=== PATIENT | male | born 1955 | race Caucasian/White ===

== ENCOUNTER 2017-06-19 09:32 | Emergency (ER) | payer MEDICARE ==
[~2017-06-19] VITALS: Ht 185.4 cm; Wt 85.0 kg
[~2017-06-19 09:32] MED LIST: ASPI-621 PO; LORA-446 PO; NICO-487 TD; OXCA300T3 PO; QUET25TA5 PO; QUET50TA PO; SERT50TA PO; THIA100T10 PO; TRAZ100T15 PO; TRAZ150T62 PO
[2017-06-19 09:41] VITALS: BP 120/74
[2017-06-19 10:38] LABS: HEMATOCRIT 44.2 % (39.2-51.8); HEMOGLOBIN 15.2 g/dL (13.7-18.0)
[2017-06-19 10:45] LABS: BLOOD UREA NITROGEN 17 mg/dL (7-18)
== END 2017-06-19 11:23 | disposition home or self-care (01) ==
LOC: ED 10:02
DX: L73.9 Follicular disorder, unspecified (principal); M79.672 Pain in left foot; M79.671 Pain in right foot; I25.10 Atherosclerotic heart disease of native coronary artery without angina pectoris; I25.2 Old myocardial infarction
CPT/HCPCS: 36415; 80048; 82040; 84550; 85025; 99285

== ENCOUNTER 2017-06-22 05:34 | Inpatient (IN) | payer MEDICARE ==
[~2017-06-22] VITALS: Ht 185.4 cm; Wt 91.2 kg
[2017-06-22] MEDS ORDERED: SODIUM CHLORIDE 0.9% 1,000 ML IV ONE (06:49)
[2017-06-22] MEDS ORDERED: VANCOMYCIN 1,800 MG in SODIUM CHLORIDE 0.9% 250 ML IV ONE (07:00)
[2017-06-22] MEDS ORDERED: SODIUM CHLORIDE FLUSH 10ML SYR IVF ONE (07:00)
[2017-06-22] MEDS ORDERED: VANCOMYCIN PER PHARMACY IV ONE (07:00)
[2017-06-22] MEDS ORDERED: ONDANSETRON 2MG/ML, 2ML IVPush ONE (07:00)
[2017-06-22] MEDS ORDERED: SODIUM CHLORIDE 0.9% 1,000ML IVBOLUS ONE (07:00)
[2017-06-22] MEDS ORDERED: ONDANSETRON 2MG/ML, 2ML ONE (07:27)
[2017-06-22] MEDS ORDERED: HYDROmorphone 2 MG/ML, 1ML ONE (07:27)
[2017-06-22 07:33] LABS: HEMATOCRIT 42.4 % (39.2-51.8); HEMOGLOBIN 14.7 g/dL (13.7-18.0); WHITE BLOOD COUNT 13.4 x10^3/uL (3.4-10)
[2017-06-22 07:45] LABS: ASPARTATE AMINO TRANSFERASE 10 U/L (15-37); BLOOD UREA NITROGEN 9 mg/dL (7-18)
[2017-06-22] MEDS: HYDROmorphone 1 MG/ML, 1ML IVPush PRN ×2 (07:52→11:38)
[2017-06-22 08:06] LABS: DIFF TOTAL CELLS COUNTED 100 CELL DIFF
[2017-06-22 08:08] LABS: VERIFY COUNTS? YES
[2017-06-22] MEDS ORDERED: ONDANSETRON 2MG/ML, 2ML IVPush PRN (08:30)
[2017-06-22] MEDS ORDERED: ONDANSETRON ODT 4 MG PO PRN (08:30)
[2017-06-22] MEDS ORDERED: ACETAMINOPHEN 325 MG TABLET PO PRN (08:30)
[2017-06-22] MEDS ORDERED: LABETALOL 5MG/ML, 20ML IVPush PRN (08:30)
[2017-06-22] MEDS ORDERED: ENALAPRILAT 1.25 MG/ML, 2ML IVPush PRN (08:30)
[2017-06-22] MEDS ORDERED: DOCUSATE 100 MG CAPSULE PO PRN (08:30)
[2017-06-22] MEDS ORDERED: VANCOMYCIN PER PHARMACY MC PRN (08:30)
[2017-06-22] MEDS ORDERED: BISACODYL 10 MG SUPP PR PRN (08:30)
[2017-06-22] MEDS: THIAMINE 100MG TABLET PO SCH (09:00)
[2017-06-22] MEDS ORDERED: PHARMACOKINETIC MONITORING MC PRN (10:30)
[2017-06-22] MEDS ORDERED: PHARMACOKINETIC CONSULTATION MC ONE (10:30)
[2017-06-22] MEDS ORDERED: SENNA/DOCUSATE TABLET ONE (11:27)
[2017-06-22] MEDS ORDERED: NICOTINE 21 MG/24 HR PATCH.TD24 ONE (11:27)
[2017-06-22] MEDS ORDERED: ENOXAPARIN 40 MG/0.4 ML ONE (11:28)
[2017-06-22] MEDS: NICOTINE 21 MG/24 HR PATCH.TD24 TD SCH (11:37)
[2017-06-22] MEDS: ENOXAPARIN 40 MG/0.4 ML SQ SCH (11:37)
[2017-06-22] MEDS: SENNA/DOCUSATE TABLET PO SCH (11:37)
[2017-06-22] MEDS: AMPICILLIN/SULBACTAM 3 GM in SODIUM CHLORIDE 0.9% 100 ML IV SCH ×3 (11:40→22:07)
[2017-06-22] MEDS: SERTRALINE 50MG TABLET PO SCH (12:32)
[2017-06-22] MEDS: ASPIRIN 81 MG TABLET EC PO SCH (12:32)
[2017-06-22] MEDS ORDERED: ALBUTEROL/IPRATROPIUM 2.5MG/0.5MG, 3 ML ONE ×2 (12:57→16:34)
[2017-06-22 13:58] VITALS: BP 105/71
[2017-06-22] MEDS: HYDROcodone/APAP 5/325 TABLET PO PRN ×2 (14:24→18:31)
[2017-06-22] MEDS: SODIUM CHLORIDE 0.9% 1,000 ML IV SCH (14:24)
[2017-06-22] MEDS: ALBUTEROL/IPRATROPIUM 2.5MG/0.5MG, 3 ML NPPB SCH ×2 (17:15→19:49)
[2017-06-22 18:38] VITALS: BP 101/68
[2017-06-22 19:40] VITALS: BP 106/72
[2017-06-22] MEDS ORDERED: ALBUTEROL/IPRATROPIUM 2.5MG/0.5MG, 3 ML NPPB SCH (20:00)
[2017-06-22] MEDS: VANCOMYCIN 1,800 MG in SODIUM CHLORIDE 0.9% 250 ML IV SCH (20:06)
[2017-06-22 20:08] VITALS: BP 107/70
[2017-06-22] MEDS: TRAZODONE 100MG TABLET PO SCH (22:08)
[2017-06-23 01:06] VITALS: BP 111/76
[2017-06-23] MEDS: AMPICILLIN/SULBACTAM 3 GM in SODIUM CHLORIDE 0.9% 100 ML IV SCH ×4 (03:12→23:17)
[2017-06-23] MEDS: SODIUM CHLORIDE 0.9% 1,000 ML IV SCH ×2 (03:13→23:17)
[2017-06-23 05:50] LABS: BLOOD UREA NITROGEN 7 mg/dL (7-18)
[2017-06-23 05:52] LABS: HEMOGLOBIN 11.8 g/dL (13.7-18.0); WHITE BLOOD COUNT 7.6 x10^3/uL (3.4-10)
[2017-06-23] MEDS: HYDROcodone/APAP 5/325 TABLET PO PRN ×3 (06:08→20:06)
[2017-06-23 07:09] VITALS: BP 99/63
[2017-06-23] MEDS: VANCOMYCIN 1,800 MG in SODIUM CHLORIDE 0.9% 250 ML IV SCH ×2 (07:44→20:06)
[2017-06-23] MEDS: ALBUTEROL/IPRATROPIUM 2.5MG/0.5MG, 3 ML NPPB SCH ×4 (08:07→20:00)
[2017-06-23 08:24] LABS: DIFF TOTAL CELLS COUNTED 100 CELL DIFF
[2017-06-23 08:25] LABS: VERIFY COUNTS? YES
[2017-06-23 08:27] LABS: ANISOCYTOSIS 1+; POLYCHROMASIA 1+
[2017-06-23] MEDS: ENOXAPARIN 40 MG/0.4 ML SQ SCH (10:34)
[2017-06-23] MEDS: NICOTINE 21 MG/24 HR PATCH.TD24 TD SCH (10:35)
[2017-06-23] MEDS: ASPIRIN 81 MG TABLET EC PO SCH (10:36)
[2017-06-23] MEDS: SENNA/DOCUSATE TABLET PO SCH (10:36)
[2017-06-23] MEDS: SERTRALINE 50MG TABLET PO SCH (10:36)
[2017-06-23] MEDS: THIAMINE 100MG TABLET PO SCH (10:36)
[2017-06-23 13:25] VITALS: BP 91/53
[2017-06-23] MEDS: POTASSIUM CHLORIDE 20 MEQ TAB.ER.PRT PO SCH (18:23)
[2017-06-23 19:14] VITALS: BP 104/56
[2017-06-23] MEDS: TRAZODONE 100MG TABLET PO SCH (20:06)
[2017-06-24 01:08] VITALS: BP 96/54
[2017-06-24] MEDS: AMPICILLIN/SULBACTAM 3 GM in SODIUM CHLORIDE 0.9% 100 ML IV SCH ×3 (04:51→19:47)
[2017-06-24 06:33] VITALS: BP 110/70
[2017-06-24] MEDS: ALBUTEROL/IPRATROPIUM 2.5MG/0.5MG, 3 ML NPPB SCH ×4 (07:00→18:42)
[2017-06-24] MEDS: VANCOMYCIN 1,800 MG in SODIUM CHLORIDE 0.9% 250 ML IV SCH ×2 (08:54→20:27)
[2017-06-24] MEDS: SERTRALINE 50MG TABLET PO SCH (08:55)
[2017-06-24] MEDS: THIAMINE 100MG TABLET PO SCH (08:55)
[2017-06-24] MEDS: POTASSIUM CHLORIDE 20 MEQ TAB.ER.PRT PO SCH (08:55)
[2017-06-24] MEDS: ASPIRIN 81 MG TABLET EC PO SCH (08:55)
[2017-06-24] MEDS: SENNA/DOCUSATE TABLET PO SCH (08:55)
[2017-06-24] MEDS: NICOTINE 21 MG/24 HR PATCH.TD24 TD SCH (08:58)
[2017-06-24] MEDS: ENOXAPARIN 40 MG/0.4 ML SQ SCH (08:58)
[2017-06-24] MEDS: HYDROcodone/APAP 5/325 TABLET PO PRN ×2 (13:36→13:37)
[2017-06-24 14:25] VITALS: BP 108/68
[2017-06-24] MEDS: SODIUM CHLORIDE 0.9% 1,000 ML IV SCH (16:43)
[2017-06-24 19:07] VITALS: BP 109/62
[2017-06-24] MEDS: TRAZODONE 100MG TABLET PO SCH (21:00)
[2017-06-25 01:12] VITALS: BP 108/59
[2017-06-25] MEDS: AMPICILLIN/SULBACTAM 3 GM in SODIUM CHLORIDE 0.9% 100 ML IV SCH ×4 (02:07→19:37)
[2017-06-25] MEDS: SODIUM CHLORIDE 0.9% 1,000 ML IV SCH ×2 (02:07→17:46)
[2017-06-25 02:59] VITALS: BP 160/65
[2017-06-25] MEDS: ALBUTEROL/IPRATROPIUM 2.5MG/0.5MG, 3 ML NPPB SCH ×4 (07:18→20:00)
[2017-06-25 07:45] VITALS: BP 112/69
[2017-06-25] MEDS: THIAMINE 100MG TABLET PO SCH (08:31)
[2017-06-25] MEDS: SERTRALINE 50MG TABLET PO SCH (08:31)
[2017-06-25] MEDS: HYDROcodone/APAP 5/325 TABLET PO PRN ×2 (08:31→16:12)
[2017-06-25] MEDS: SENNA/DOCUSATE TABLET PO SCH (08:31)
[2017-06-25] MEDS: NICOTINE 21 MG/24 HR PATCH.TD24 TD SCH (08:32)
[2017-06-25] MEDS: ENOXAPARIN 40 MG/0.4 ML SQ SCH (08:34)
[2017-06-25] MEDS: ASPIRIN 81 MG TABLET EC PO SCH (08:36)
[2017-06-25] MEDS: VANCOMYCIN 1,800 MG in SODIUM CHLORIDE 0.9% 250 ML IV SCH ×2 (10:40→20:37)
[2017-06-25 13:34] VITALS: BP 118/81
[2017-06-25] MEDS: TRAZODONE 100MG TABLET PO SCH (19:44)
[2017-06-25 20:00] VITALS: BP 125/68
[2017-06-26 00:41] VITALS: BP 132/70
[2017-06-26] MEDS: AMPICILLIN/SULBACTAM 3 GM in SODIUM CHLORIDE 0.9% 100 ML IV SCH ×2 (01:33→10:42)
[2017-06-26 06:38] VITALS: BP 133/80
[2017-06-26] MEDS: ALBUTEROL/IPRATROPIUM 2.5MG/0.5MG, 3 ML NPPB SCH ×2 (07:11→11:00)
[2017-06-26] MEDS: VANCOMYCIN 1,800 MG in SODIUM CHLORIDE 0.9% 250 ML IV SCH (08:46)
[2017-06-26] MEDS: SODIUM CHLORIDE 0.9% 1,000 ML IV SCH (08:46)
[2017-06-26] MEDS: ENOXAPARIN 40 MG/0.4 ML SQ SCH (08:46)
[2017-06-26] MEDS: SENNA/DOCUSATE TABLET PO SCH (08:47)
[2017-06-26] MEDS: THIAMINE 100MG TABLET PO SCH (08:47)
[2017-06-26] MEDS: SERTRALINE 50MG TABLET PO SCH (08:47)
[2017-06-26] MEDS ORDERED: SULF1TAB24 PO (10:42)
[2017-06-26] MEDS: NICOTINE 21 MG/24 HR PATCH.TD24 TD SCH (10:42)
[2017-06-26] MEDS: ASPIRIN 81 MG TABLET EC PO SCH (12:00)
[2017-06-26] MEDS ORDERED: PNEUMOCOCCAL 23 VACCINE IM-VACC ONE (12:00)
[2017-06-26] MEDS ORDERED: FLU VACC QS2017-18 (36MOS+) UP/PF 0.5 ML IM-VACC ONE (12:00)
[2017-06-26 14:58] VITALS: BP 146/84
[2017-06-26] MEDS ORDERED: ALBUTEROL/IPRATROPIUM 2.5MG/0.5MG, 3 ML NPPB PRN (16:00)
[2017-06-26] MEDS ORDERED: ACETAMINOPHEN 325 MG TABLET PO PRN (17:30)
[2017-06-26 18:28] VITALS: BP 136/78
[2017-06-26] MEDS: SULFAMETH./TRIMETHOPRIM DS 800MG/160MG TABLET PO SCH (19:51)
[2017-06-26] MEDS: TRAZODONE 100MG TABLET PO SCH (19:51)
[2017-06-27 00:33] VITALS: BP 151/82
[2017-06-27 06:38] VITALS: BP 144/82
[2017-06-27] MEDS: SENNA/DOCUSATE TABLET PO SCH (09:13)
[2017-06-27] MEDS: SULFAMETH./TRIMETHOPRIM DS 800MG/160MG TABLET PO SCH ×2 (09:18→20:30)
[2017-06-27] MEDS: ASPIRIN 81 MG TABLET EC PO SCH (09:18)
[2017-06-27] MEDS: THIAMINE 100MG TABLET PO SCH (09:18)
[2017-06-27] MEDS: ENOXAPARIN 40 MG/0.4 ML SQ SCH (09:18)
[2017-06-27] MEDS: SERTRALINE 50MG TABLET PO SCH (09:18)
[2017-06-27] MEDS: NICOTINE 21 MG/24 HR PATCH.TD24 TD SCH (09:18)
[2017-06-27 12:12] VITALS: BP 116/72
[2017-06-27 19:31] VITALS: BP 118/67
[2017-06-27] MEDS: TRAZODONE 100MG TABLET PO SCH (20:30)
[2017-06-28 01:29] VITALS: BP 135/66
[2017-06-28 06:48] VITALS: BP 121/77
[2017-06-28] MEDS: SENNA/DOCUSATE TABLET PO SCH (09:00)
[2017-06-28] MEDS: THIAMINE 100MG TABLET PO SCH (09:32)
[2017-06-28] MEDS: ENOXAPARIN 40 MG/0.4 ML SQ SCH (09:32)
[2017-06-28] MEDS: NICOTINE 21 MG/24 HR PATCH.TD24 TD SCH (09:32)
[2017-06-28] MEDS: SULFAMETH./TRIMETHOPRIM DS 800MG/160MG TABLET PO SCH (09:32)
[2017-06-28] MEDS: ASPIRIN 81 MG TABLET EC PO SCH (09:32)
[2017-06-28] MEDS: SERTRALINE 50MG TABLET PO SCH (09:32)
[2017-06-28 12:32] VITALS: BP 139/73
== END 2017-06-28 12:45 | disposition home or self-care (01) | DRG 872 ==
LOC: ED 07:00 → EDIP 07:13 → ED 07:36 → 3NE 13:34
PROVIDERS: ADMIT Internal Medicine; ATTEND Family Medicine
DX: A41.9 Sepsis, unspecified organism (principal); E44.0 Moderate protein-calorie malnutrition; L03.116 Cellulitis of left lower limb; E87.6 Hypokalemia; J44.9 Chronic obstructive pulmonary disease, unspecified; F31.9 Bipolar disorder, unspecified
CPT/HCPCS: 36415; 80048; 80053; 80202; 82565; 83605; 83735; 85025; 85651; 87040; 90686; 90732; 94640; 96365; 96366; 96375; 96376; J0295; J1170; J1650; J2405; J3370; J7620; J7030; J7050

== ENCOUNTER 2018-07-02 08:28 | Observation (INO) | payer MEDICARE ==
[~2018-07-02] VITALS: Ht 185.4 cm; Wt 84.3 kg
[~2018-07-02 08:28] MED LIST changes: -ASPI-621 PO; +ASPI81TA45 PO; +SULF1TAB24 PO; +TRAZ-137 PO; -TRAZ100T15 PO
[2018-07-02] MEDS ORDERED: DIPHENHYDRAMINE 50 MG/ML, 1ML ONE (08:44)
[2018-07-02] MEDS ORDERED: FAMOTIDINE 20 MG TABLET ONE (08:44)
[2018-07-02] MEDS ORDERED: FAMOTIDINE 20 MG TABLET PO ONE (09:00)
[2018-07-02] MEDS ORDERED: DIPHENHYDRAMINE 50 MG/ML, 1ML IVPush ONE (09:00)
[2018-07-02] MEDS ORDERED: hydrOXYzine 25 MG/ML IM ONE (10:30)
[2018-07-02 11:17] LABS: BASOPHILS # (AUTO) 0.01 x10^3/uL (0-0.1); BASOPHILS % (AUTO) 0 % (0-1); EOSINOPHILS # (AUTO) 0.35 x10^3/uL (0-0.4); EOSINOPHILS % (AUTO) 4 % (1-7); LYMPHOCYTES # (AUTO) 1.06 x10^3/uL (1-3.4); LYMPHOCYTES % (AUTO) 12 % (22-44); MD NO; MEAN CORPUSCULAR HEMOGLOBIN 33.6 pg (27.5-34.5); MEAN CORPUSCULAR HGB CONC 34.5 g/dL (33.2-36.2); MEAN CORPUSCULAR VOLUME 97.4 fL (81-97); MEAN PLATELET VOLUME 7.8 fL (7.4-10.4); MONOCYTES # (AUTO) 0.69 x10^3/uL (0.2-0.8); MONOCYTES % (AUTO) 8 % (2-9); NEUTROPHILS % (AUTO) 77 % (42-75); PLATELET COUNT 247 x10^3/uL (130-400); RED BLOOD COUNT 4.79 x10^6/uL (4.38-5.82)
[2018-07-02 11:27] LABS: ANION GAP 6 mmol/L (5-15); CALCIUM 8.7 mg/dL (8.5-10.1); CHLORIDE 105 mmol/L (98-107); CREATININE 0.73 mg/dL (0.7-1.3)
[2018-07-02] MEDS ORDERED: DOCUSATE 100 MG CAPSULE PO PRN (11:30)
[2018-07-02] MEDS ORDERED: LORazepam 1MG TABLET PO PRN (11:30)
[2018-07-02] MEDS ORDERED: ACETAMINOPHEN 325 MG TABLET PO PRN (11:30)
[2018-07-02] MEDS ORDERED: ONDANSETRON ODT 4 MG PO PRN (11:30)
[2018-07-02] MEDS ORDERED: DIPHENHYDRAMINE 50 MG/ML, 1ML IVPush PRN (11:30)
[2018-07-02] MEDS ORDERED: hydrOXYzine 50 MG/ML IM ONE (11:30)
[2018-07-02 11:58] VITALS: BP 120/81
[2018-07-02] MEDS: HEPARIN 5,000 UNITS/ML, 1ML SQ SCH ×2 (14:29→22:24)
[2018-07-02] MEDS: methylPREDNISolone SOD SUCC 125 MG/2 ML IVPush SCH ×2 (14:29→22:21)
[2018-07-02] MEDS: SODIUM CHLORIDE 0.9% 1,000 ML IV SCH (14:30)
[2018-07-02] MEDS: THIAMINE 100MG TABLET PO SCH (14:30)
[2018-07-02] MEDS: NICOTINE 21 MG/24 HR PATCH.TD24 TD SCH (14:30)
[2018-07-02] MEDS: FOLIC ACID 1 MG TABLET PO SCH (14:30)
[2018-07-02 18:27] VITALS: BP 125/80
[2018-07-02] MEDS ORDERED: FAMOTIDINE 20 MG/2 ML IVPush SCH (21:00)
[2018-07-03 01:28] VITALS: BP 123/75
[2018-07-03] MEDS: SODIUM CHLORIDE 0.9% 1,000 ML IV SCH (03:17)
[2018-07-03] MEDS ORDERED: FAMOTIDINE 20 MG TABLET PO SCH (06:06)
[2018-07-03] MEDS: methylPREDNISolone SOD SUCC 125 MG/2 ML IVPush SCH (06:08)
[2018-07-03] MEDS: HEPARIN 5,000 UNITS/ML, 1ML SQ SCH (06:11)
[2018-07-03] MEDS: NICOTINE 21 MG/24 HR PATCH.TD24 TD SCH (06:40)
[2018-07-03] MEDS: THIAMINE 100MG TABLET PO SCH (07:47)
[2018-07-03] MEDS: FOLIC ACID 1 MG TABLET PO SCH (07:47)
== END 2018-07-03 10:15 | disposition left against medical advice (07) ==
LOC: ED 10:19 → INTOOBSV 10:20 → EDIP 10:20 → ED 10:34 → 3NW 11:50
PROVIDERS: ADMIT Internal Medicine; ATTEND Internal Medicine
DX: L23.4 Allergic contact dermatitis due to dyes (principal); I25.10 Atherosclerotic heart disease of native coronary artery without angina pectoris; F10.10 Alcohol abuse, uncomplicated; F17.210 Nicotine dependence, cigarettes, uncomplicated; F31.9 Bipolar disorder, unspecified; I25.2 Old myocardial infarction
CPT/HCPCS: 36415; 80048; 85025; 96372; 96374; 96375; 96376; 99284; G0378; J1200; J1644; J2930; J3490; J7030; J7512

== ENCOUNTER 2018-07-21 10:54 | Emergency (ER) | payer MEDICARE ==
[~2018-07-21] VITALS: Ht 182.9 cm; Wt 85.0 kg
[2018-07-21 11:06] VITALS: BP 113/70
[2018-07-21] MEDS ORDERED: LIDOCAINE-MPF 1%, 5ML ONE (11:54)
[2018-07-21] MEDS ORDERED: LIDOCAINE-MPF 1%, 5ML INFIL ONE (12:00)
== END 2018-07-21 12:31 | disposition home or self-care (01) ==
LOC: ED 12:12
DX: L02.11 Cutaneous abscess of neck (principal); I25.10 Atherosclerotic heart disease of native coronary artery without angina pectoris; I25.2 Old myocardial infarction; F31.9 Bipolar disorder, unspecified; F17.200 Nicotine dependence, unspecified, uncomplicated; Z88.5 Allergy status to narcotic agent
CPT/HCPCS: 10060

== ENCOUNTER 2018-09-21 19:36 | Emergency (ER) | payer MEDICARE ==
[~2018-09-21] VITALS: Ht 185.4 cm; Wt 88.0 kg
[2018-09-21] MEDS ORDERED: ASPIRIN 81 MG TABLET CHEW PO ONE (20:00)
[2018-09-21 20:02] VITALS: BP 149/88
[2018-09-21] MEDS ORDERED: DIPH,PERTUSS(ACELL),TET VAC/PF 0.5 ML IM-VACC ONE ×2 (20:57→21:00)
--- NOTE | 2018-09-21 21:06 | NUR ---
Discharge instructions discussed with patient including when to return to emergency department, patient verbalizes understanding. Prescriptions provided with instruction for use. Patient ambulates with steady gait to discharge desk in no acute distress.
== END 2018-09-21 21:09 | disposition home or self-care (01) ==
LOC: ED 20:34
DX: L02.414 Cutaneous abscess of left upper limb (principal); F17.210 Nicotine dependence, cigarettes, uncomplicated; Z72.9 Problem related to lifestyle, unspecified; Z75.9 Unspecified problem related to medical facilities and other health care
CPT/HCPCS: 90471; 90715; 99283

== ENCOUNTER 2019-07-21 12:16 | Emergency (ER) | payer MEDICARE ==
[~2019-07-21] VITALS: Ht 182.9 cm; Wt 90.3 kg
[~2019-07-21 12:16] MED LIST changes: -TRAZ-137 PO; +TRAZ-175 PO
[2019-07-21 13:38] VITALS: BP 142/97
--- NOTE | 2019-07-21 14:00 | NUR ---
PT AMBULATORY TO ROOM FROM [facility]. ROOM SECURED, PT BELONGINGS TO TWO BAGS AND PLACED IN LOCKER. URINAL PROVIDED. PT UPDATED ON POC. ED SUP NOTIFIED OF NEED FOR SITTER. PT SEVERAL TIMES HAS DENIED SI, HOWEVER REPORTS OF DEPRESSION, "NOT WANTING TO LIVE LIKE THIS", AND ASKS TO BE SENT TO [facility]. PT ALSO STATES "I OFTEN WISH I WAS AND IF I HAD A PLAN IT WOULD BE BY SOIL TECHNICIAN". PT STATES HE HAS ACCESS TO [employer] "WHEN I NEED THEM". PT ALSO WITH C/O COUGH.
[2019-07-21 14:14] LABS: BASOPHILS # (AUTO) 0.07 x10^3/uL (0-0.1); BASOPHILS % (AUTO) 1 % (0-1); EOSINOPHILS # (AUTO) 0.22 x10^3/uL (0-0.4); EOSINOPHILS % (AUTO) 3 % (1-7); LYMPHOCYTES # (AUTO) 2.08 x10^3/uL (1-3.4); LYMPHOCYTES % (AUTO) 29 % (22-44); MD NO; MEAN CORPUSCULAR HEMOGLOBIN 32.9 pg (27.5-34.5); MEAN CORPUSCULAR VOLUME 96.6 fL (81-97); MEAN PLATELET VOLUME 7.6 fL (7.4-10.4); MONOCYTES # (AUTO) 0.61 x10^3/uL (0.2-0.8); MONOCYTES % (AUTO) 8 % (2-9); NEUTROPHILS # (AUTO) 4.25 x10^3/uL (1.8-6.8); NEUTROPHILS % (AUTO) 59 % (42-75); PLATELET COUNT 292 x10^3/uL (130-400); RED BLOOD COUNT 4.45 x10^6/uL (4.38-5.82); RED CELL DISTRIBUTION WIDTH 13.1 % (9.4-14.8)
[2019-07-21 14:23] LABS: ALANINE AMINOTRANSFERASE 22 U/L (12-78); ALBUMIN 3.4 g/dL (3.4-5.0); ANION GAP 5 mmol/L (5-15); CALCIUM 8.3 mg/dL (8.5-10.1); CHLORIDE 111 mmol/L (98-107); CREATININE 0.84 mg/dL (0.7-1.3)
[2019-07-21 14:30] LABS: ALKALINE PHOSPHATASE 102 U/L (45-117); BILIRUBIN,TOTAL 0.3 mg/dL (0.2-1.0); TOTAL PROTEIN 6.6 g/dL (6.4-8.2)
[2019-07-21] MEDS ORDERED: ALBUTEROL/IPRATROPIUM 2.5MG/0.5MG, 3 ML NPPB ONE ×2 (15:00→16:00)
--- NOTE | 2019-07-21 15:03 | NUR ---
AWAITING PSYCH ULTRA SOUND TECHNICIAN TO SEE PT.
--- NOTE | 2019-07-21 15:24 | NUR ---
THROUGHPUT: PSYCH TRACTOR EXPERT (KARL) TO SEE ELIZABETH
--- NOTE | 2019-07-21 16:30 | NUR ---
TAXI VOUCHER PROVIDED FOR TRANSPORT TO [facility].
== END 2019-07-21 16:35 | disposition home or self-care (01) ==
LOC: ED 16:05
DX: J44.1 Chronic obstructive pulmonary disease with (acute) exacerbation (principal); F33.1 Major depressive disorder, recurrent, moderate; I10 Essential (primary) hypertension; I25.10 Atherosclerotic heart disease of native coronary artery without angina pectoris; I25.2 Old myocardial infarction
CPT/HCPCS: 36415; 71046; 80053; 85025; 94640; 99284; J7512; J7620

== ENCOUNTER 2019-09-28 20:38 | Emergency (ER) | payer MEDICARE ==
[~2019-09-28] VITALS: Ht 182.9 cm; Wt 88.0 kg
--- NOTE | 2019-09-28 21:35 | NUR ---
STUDIO COORDINATOR: PT WALKED BACK FROM LOBBY TO ROOM AT THIS TIME.
--- NOTE | 2019-09-28 21:40 | NUR ---
PT REPORTS OF HIS 6 MONTHS AGO, REPORTS "FEELING DOWN" TODAY. DENIES SI/HI OR ANY MEDICAL COMPLAINTS AT THIS TIME. WANTS TAXI VOUCHER TO [facility] STATES "ITS TOO FAR TO WALK". PT CONENCTED TO MONITORING, CALL LIGHT WITHIN REACH.
[2019-09-28 22:04] VITALS: BP 134/78
--- NOTE | 2019-09-28 22:42 | NUR ---
Patient/Caregiver given discharge instructions and they have confirmed that they understand the instructions. Patient ambulatory with steady gait.
== END 2019-09-28 22:46 | disposition home or self-care (01) ==
LOC: ED 21:50
DX: F33.9 Major depressive disorder, recurrent, unspecified (principal); Z72.9 Problem related to lifestyle, unspecified; I25.2 Old myocardial infarction; I10 Essential (primary) hypertension; J44.9 Chronic obstructive pulmonary disease, unspecified
CPT/HCPCS: 99281

== ENCOUNTER 2019-10-29 09:47 | Emergency (ER) | payer MEDICARE ==
[~2019-10-29] VITALS: Ht 182.9 cm; Wt 86.4 kg
[2019-10-29] MEDS ORDERED: QUET100T4 PO (10:02)
--- NOTE | 2019-10-29 10:02 | NUR ---
PT LAYING IN BED, RESPIRATIONS EVEN AND UNLABORED, NO SIGNS OF DISTRESS, ERP TO BEDSIDE. WILL CONTINUE TO MONITOR.
--- NOTE | 2019-10-29 10:12 | NUR ---
PT TO IMAGING.
[2019-10-29 10:56] LABS: BASOPHILS # (AUTO) 0.03 x10^3/uL (0-0.1); BASOPHILS % (AUTO) 1 % (0-1); EOSINOPHILS # (AUTO) 0.23 x10^3/uL (0-0.4); EOSINOPHILS % (AUTO) 4 % (1-7); LYMPHOCYTES # (AUTO) 1.57 x10^3/uL (1-3.4); LYMPHOCYTES % (AUTO) 26 % (22-44); MD NO; MEAN CORPUSCULAR HEMOGLOBIN 32.9 pg (27.5-34.5); MEAN CORPUSCULAR HGB CONC 33.6 g/dL (33.2-36.2); MEAN CORPUSCULAR VOLUME 97.8 fL (81-97); MEAN PLATELET VOLUME 7.7 fL (7.4-10.4); MONOCYTES # (AUTO) 0.47 x10^3/uL (0.2-0.8); MONOCYTES % (AUTO) 8 % (2-9); NEUTROPHILS # (AUTO) 3.65 x10^3/uL (1.8-6.8); NEUTROPHILS % (AUTO) 61 % (42-75); PLATELET COUNT 272 x10^3/uL (130-400); RED BLOOD COUNT 4.78 x10^6/uL (4.38-5.82); RED CELL DISTRIBUTION WIDTH 13.6 % (9.4-14.8)
[2019-10-29 11:08] LABS: ALANINE AMINOTRANSFERASE 23 U/L (12-78); ALBUMIN 3.5 g/dL (3.4-5.0); ANION GAP 5 mmol/L (5-15); CALCIUM 9.1 mg/dL (8.5-10.1); CHLORIDE 108 mmol/L (98-107); CREATININE 0.74 mg/dL (0.7-1.3)
--- NOTE | 2019-10-29 11:09 | NUR ---
US AT BEDSIDE. PT SITTING IN BED, WATCHING TV, NO SIGNS OF DISTRESS.
[2019-10-29 11:12] LABS: ALKALINE PHOSPHATASE 93 U/L (45-117); BILIRUBIN,TOTAL 0.5 mg/dL (0.2-1.0); TOTAL PROTEIN 7.2 g/dL (6.4-8.2)
[2019-10-29 12:10] VITALS: BP 119/60
== END 2019-10-29 12:37 | disposition home or self-care (01) ==
LOC: ED 10:14
DX: S90.31XA Contusion of right foot, initial encounter (principal); S80.812A Abrasion, left lower leg, initial encounter; L03.116 Cellulitis of left lower limb; R60.0 Localized edema; J44.9 Chronic obstructive pulmonary disease, unspecified; I25.10 Atherosclerotic heart disease of native coronary artery without angina pectoris; I25.2 Old myocardial infarction; I10 Essential (primary) hypertension; W01.0XXA Fall on same level from slipping, tripping and stumbling without subsequent striking against object, initial encounter; Y93.89 Activity, other specified; Y92.89 Other specified places as the place of occurrence of the external cause; Y99.8 Other external cause status
CPT/HCPCS: 36415; 71045; 80053; 83880; 85025; 93970; 99285

== ENCOUNTER 2019-10-30 21:30 | Emergency (ER) | payer MEDICARE ==
[~2019-10-30] VITALS: Ht 185.4 cm; Wt 87.0 kg
[~2019-10-30 21:30] MED LIST changes: +QUET100T4 PO
[2019-10-30] MEDS ORDERED: ACETAMINOPHEN 500 MG TABLET ONE (21:41)
[2019-10-30 21:48] VITALS: BP 140/82
[2019-10-30 21:53] LABS: BASOPHILS # (AUTO) 0.03 x10^3/uL (0-0.1); BASOPHILS % (AUTO) 1 % (0-1); EOSINOPHILS # (AUTO) 0.23 x10^3/uL (0-0.4); EOSINOPHILS % (AUTO) 4 % (1-7); LYMPHOCYTES # (AUTO) 1.91 x10^3/uL (1-3.4); LYMPHOCYTES % (AUTO) 31 % (22-44); MD NO; MEAN CORPUSCULAR HEMOGLOBIN 32.4 pg (27.5-34.5); MEAN CORPUSCULAR HGB CONC 33.5 g/dL (33.2-36.2); MEAN CORPUSCULAR VOLUME 96.7 fL (81-97); MEAN PLATELET VOLUME 7.7 fL (7.4-10.4); MONOCYTES # (AUTO) 0.58 x10^3/uL (0.2-0.8); MONOCYTES % (AUTO) 9 % (2-9); NEUTROPHILS # (AUTO) 3.41 x10^3/uL (1.8-6.8); NEUTROPHILS % (AUTO) 55 % (42-75); PLATELET COUNT 264 x10^3/uL (130-400); RED BLOOD COUNT 4.22 x10^6/uL (4.38-5.82); RED CELL DISTRIBUTION WIDTH 13.9 % (9.4-14.8)
[2019-10-30] MEDS ORDERED: SULFAMETH./TRIMETHOPRIM DS 800MG/160MG TABLET PO ONE (22:00)
[2019-10-30] MEDS ORDERED: CEPHALEXIN 500 MG CAPSULE PO ONE (22:00)
[2019-10-30] MEDS ORDERED: ACETAMINOPHEN 500 MG TABLET PO ONE (22:00)
[2019-10-30 22:03] LABS: ALANINE AMINOTRANSFERASE 21 U/L (12-78); ALBUMIN 3.5 g/dL (3.4-5.0); ANION GAP 7 mmol/L (5-15); CALCIUM 8.8 mg/dL (8.5-10.1); CHLORIDE 107 mmol/L (98-107); CREATININE 0.66 mg/dL (0.7-1.3)
[2019-10-30] MEDS ORDERED: CEPHALEXIN 500 MG CAPSULE ONE (22:05)
[2019-10-30] MEDS ORDERED: SULFAMETH./TRIMETHOPRIM DS 800MG/160MG TABLET ONE (22:05)
[2019-10-30 22:07] LABS: ALKALINE PHOSPHATASE 95 U/L (45-117); BILIRUBIN,TOTAL 0.2 mg/dL (0.2-1.0); TOTAL PROTEIN 6.8 g/dL (6.4-8.2)
--- NOTE | 2019-10-30 22:34 | NUR ---
Patient given discharge instructions and they have confirmed that they understand the instructions. Patient ambulatory with steady gait.
== END 2019-10-30 22:36 | disposition home or self-care (01) ==
LOC: ED 22:08
DX: L03.116 Cellulitis of left lower limb (principal); L03.115 Cellulitis of right lower limb; I10 Essential (primary) hypertension; I25.2 Old myocardial infarction; I25.10 Atherosclerotic heart disease of native coronary artery without angina pectoris; J44.9 Chronic obstructive pulmonary disease, unspecified; R68.0 Hypothermia, not associated with low environmental temperature
CPT/HCPCS: 36415; 80053; 83880; 85025; 99284

== ENCOUNTER 2020-01-02 07:07 | Emergency (ER) | payer MEDICARE ==
[~2020-01-02] VITALS: Ht 185.4 cm; Wt 89.5 kg
[2020-01-02 07:08] VITALS: BP 110/86
== END 2020-01-02 07:23 | disposition left against medical advice (07) ==
LOC: ED 07:18
DX: T15.01XA Foreign body in cornea, right eye, initial encounter (principal); X58.XXXA Exposure to other specified factors, initial encounter; Y93.89 Activity, other specified; Y92.89 Other specified places as the place of occurrence of the external cause; Y99.8 Other external cause status
CPT/HCPCS: 99282

== ENCOUNTER 2020-01-24 08:39 | Emergency (ER) | payer MEDICARE ==
[~2020-01-24] VITALS: Ht 185.4 cm; Wt 87.7 kg
[2020-01-24 08:50] VITALS: BP 120/79
[2020-01-24] MEDS ORDERED: FLUORESCEIN OPHTHALMIC 1 MG STRIP ONE (09:01)
[2020-01-24] MEDS ORDERED: PROPARACAINE OPHTH 0.5%, 15ML ONE (09:01)
--- NOTE | 2020-01-24 09:01 | NUR ---
Pt resting sitting on eye exam chair in room. NADN. No needs expressed. PA at bedside.
[2020-01-24] MEDS ORDERED: NAPHAZOLINE/PHENIRAMINE OPHTH RIGHTEYE STA (09:11)
--- NOTE | 2020-01-24 09:28 | NUR ---
Sent yellow slip to pharmacy to request medication per EMAR.
[2020-01-24] MEDS ORDERED: FLUORESCEIN OPHTHALMIC 1 MG STRIP EACHEYE ONE (10:00)
[2020-01-24] MEDS ORDERED: PROPARACAINE OPHTH 0.5%, 15ML EACHEYE ONE (10:00)
--- NOTE | 2020-01-24 10:12 | NUR ---
Provided report to STONEY Curiel. All questions answered. STONEY Curiel to assume care at this time.
--- NOTE | 2020-01-24 10:12 | NUR ---
assuming pt care at this time. received bedside report from STONEY Holder
--- NOTE | 2020-01-24 10:25 | NUR ---
Patient/Caregiver given discharge instructions and they have confirmed that they understand the instructions. Patient ambulatory with steady gait USING PERSONAL CANE. PT LEFT WITH ALL PERSONAL BELONGINGS.
== END 2020-01-24 10:26 | disposition home or self-care (01) ==
LOC: ED 09:44
DX: H10.11 Acute atopic conjunctivitis, right eye (principal); K02.9 Dental caries, unspecified; I25.2 Old myocardial infarction; I10 Essential (primary) hypertension; J44.9 Chronic obstructive pulmonary disease, unspecified
CPT/HCPCS: 99283

== ENCOUNTER 2020-06-23 11:34 | Emergency (ER) | payer MEDICARE ==
[~2020-06-23] VITALS: Ht 208.3 cm; Wt 92.6 kg
[~2020-06-23 11:34] MED LIST changes: -NICO-487 TD; +NICO-587 TD
[2020-06-23 11:49] VITALS: BP 160/84
--- NOTE | 2020-06-23 12:02 | NUR ---
patient states he is here because he is "mentally a mess". his one year ago this past october. he states he went to [facility], and went to to [facility] asking to see a counselor and they sent him here. states not suicidal.
--- NOTE | 2020-06-23 13:35 | NUR ---
Patient/Caregiver given discharge instructions and they have confirmed that they understand the instructions. Patient ambulatory with steady gait.
== END 2020-06-23 13:36 | disposition home or self-care (01) ==
LOC: ED 12:20
DX: F33.9 Major depressive disorder, recurrent, unspecified (principal); I10 Essential (primary) hypertension; J44.9 Chronic obstructive pulmonary disease, unspecified; I25.2 Old myocardial infarction; I25.10 Atherosclerotic heart disease of native coronary artery without angina pectoris; Z87.891 Personal history of nicotine dependence
CPT/HCPCS: 99281

== ENCOUNTER 2020-07-14 16:02 | Emergency (ER) | payer MEDICARE ==
[~2020-07-14] VITALS: Ht 185.4 cm; Wt 90.9 kg
[2020-07-14 16:05] VITALS: BP 118/56
--- NOTE | 2020-07-14 16:28 | NUR ---
DALTON RN: PT REPORTS SI WITH NO PLAN. PT HAS BEEN SEEN BY DR TRUONG. PT TEARFUL WHEN TALKING ABOUT HIS FAMLIY. PT REPORTS HE LOST BOTH HIS AND DAUGHTER IN THE SAME YEAR AND IS FEELING DOWN. ROOM SECURE. ONE BAG OF BELONGINGS LOCKED UP.
--- NOTE | 2020-07-14 16:50 | NUR ---
FIRST CONTACT WITH PATIENT. PATIENT RESTING IN GURNEY WITH EYES CLOSED, NADN, SUICIDE PRECAUTIONS IN PLACE, WILL CONTINUE TO MONITOR.
--- NOTE | 2020-07-14 17:10 | NUR ---
ARIEL CRANE AT BEDSIDE FOR PSYCH EVAL.
--- NOTE | 2020-07-14 17:40 | NUR ---
PATIENT AMBULATED TO BATHROOM WITH STEADY GAIT FOR URINE SAMPLE.
--- NOTE | 2020-07-14 17:47 | NUR ---
URINE SAMPLE COLLECTED AND SENT TO LAB, WARM BLANKET PROVIDED TO PATIENT. NADN, SUICIDE PRECAUTIONS IN PLACE, WILL CONTINUE TO MONITOR.
[2020-07-14 17:55] LABS: BASOPHILS % (AUTO) 1 % (0-1); EOSINOPHILS % (AUTO) 3 % (1-7); LYMPHOCYTES % (AUTO) 39 % (22-44); MEAN CORPUSCULAR HEMOGLOBIN 33.2 pg (27.5-34.5); MEAN CORPUSCULAR HGB CONC 34.2 g/dL (33.2-36.2); MEAN PLATELET VOLUME 7.6 fL (7.4-10.4); MONOCYTES % (AUTO) 8 % (2-9); NEUTROPHILS % (AUTO) 50 % (42-75); PLATELET COUNT 275 x10^3/uL (130-400); RED BLOOD COUNT 4.59 x10^6/uL (4.38-5.82); RED CELL DISTRIBUTION WIDTH 13.1 % (9.4-14.8)
[2020-07-14 17:56] LABS: MD NO
[2020-07-14 18:08] LABS: AMPHETAMINE SCREEN, URINE Positive (Negative); BARBITURATE SCREEN, URINE Negative (Negative); BENZODIAZEPINE SCREEN, URINE Negative (Negative); CANNABINOID SCREEN, URINE Positive (Negative); COCAINE SCREEN, URINE Negative (Negative); METHADONE SCREEN, URINE Negative (Negative); OPIATE SCREEN, URINE Negative (Negative)
[2020-07-14 18:08] LABS: ALBUMIN 3.9 g/dL (3.4-5.0); ANION GAP 5 mmol/L (5-15); CALCIUM 9.1 mg/dL (8.5-10.1); CHLORIDE 107 mmol/L (98-107)
[2020-07-14 18:19] LABS: ALANINE AMINOTRANSFERASE 32 U/L (12-78); ALKALINE PHOSPHATASE 93 U/L (45-117); BILIRUBIN,TOTAL 0.6 mg/dL (0.2-1.0); CREATININE 0.78 mg/dL (0.7-1.3); TOTAL PROTEIN 7.2 g/dL (6.4-8.2)
--- NOTE | 2020-07-14 18:32 | NUR ---
PATIENT RESTING IN GURNEY WITH EYES CLOSED, RESP EVEN AND UNLABORED, SUICIDE PRECAUTIONS IN PLACE. WAITING FOR COVID RESULTS. WILL CONTINUE TO MONITOR.
--- NOTE | 2020-07-14 19:47 | NUR ---
PATIENT RESTING IN GURNEY WITH EYES CLOSED, RESP EVEN AND UNLABORED, SUICIDE PRECAUTIONS IN PLACE, WILL CONTINUE TO MONITOR.
--- NOTE | 2020-07-14 19:55 | NUR ---
REPORT CALLED TO STONEY MCKEE ON U FOR TRANSFER OF PATIENT CARE.
--- NOTE | 2020-07-14 20:12 | NUR ---
PATIENT TRANSFERRED IN STABLE CONDITION TO U VIA WHEELCHAIR WITH MACHINE MAINTENANCE REPAIRER, PATIENT BELONGINGS TAKEN FROM LOCKED CABINET UP TO U WITH PATIENT.
== END 2020-07-14 20:13 ==
LOC: ED 16:43
DX: F32.1 Major depressive disorder, single episode, moderate (principal); Z20.822 Contact with and (suspected) exposure to COVID-19; R45.851 Suicidal ideations; F10.229 Alcohol dependence with intoxication, unspecified; F15.10 Other stimulant abuse, uncomplicated; I10 Essential (primary) hypertension; I25.2 Old myocardial infarction; J44.9 Chronic obstructive pulmonary disease, unspecified; I25.10 Atherosclerotic heart disease of native coronary artery without angina pectoris; F17.200 Nicotine dependence, unspecified, uncomplicated; Y90.9 Presence of alcohol in blood, level not specified
CPT/HCPCS: 36415; 80053; 80299; 80307; 80329; 84439; 84443; 85025; 87635; 99285; G0480

== ENCOUNTER 2020-07-14 18:37 | Inpatient (IN) | payer MEDICARE ==
[~2020-07-14] VITALS: Ht 183.6 cm; Wt 89.3 kg
[2020-07-14] MEDS ORDERED: ONDANSETRON ODT 4 MG PO PRN (19:30)
[2020-07-14 20:20] VITALS: BP 112/69
[2020-07-14 20:42] LABS: CHOL/HDL RATIO 3.4; LDL/HDL RATIO 1.8 (0.5-3.0)
[2020-07-14] MEDS ORDERED: PLEASE ENTER HEIGHT AND WEIGHT MC SCH (21:00)
[2020-07-14] MEDS ORDERED: PLEASE ENTER ALLERGIES MC SCH (21:00)
[2020-07-14] MEDS: ACETAMINOPHEN 325 MG TABLET PO PRN (21:25)
[2020-07-14] MEDS: DIVALPROEX 250 MG TAB.ER.24H PO SCH (21:39)
[2020-07-14] MEDS: QUETIAPINE 100MG TABLET PO SCH (21:39)
[2020-07-14 22:00] LABS: MICROSCOPIC NOT IND
[2020-07-15 06:07] LABS: BASOPHILS % (AUTO) 1 % (0-1); EOSINOPHILS % (AUTO) 4 % (1-7); LYMPHOCYTES % (AUTO) 46 % (22-44); MEAN CORPUSCULAR HEMOGLOBIN 33.3 pg (27.5-34.5); MEAN CORPUSCULAR HGB CONC 34.3 g/dL (33.2-36.2); MEAN PLATELET VOLUME 7.6 fL (7.4-10.4); MONOCYTES % (AUTO) 9 % (2-9); NEUTROPHILS % (AUTO) 40 % (42-75); PLATELET COUNT 228 x10^3/uL (130-400); RED BLOOD COUNT 4.44 x10^6/uL (4.38-5.82); RED CELL DISTRIBUTION WIDTH 13.3 % (9.4-14.8)
[2020-07-15 06:08] LABS: MD NO
[2020-07-15 06:17] LABS: ALBUMIN 3.4 g/dL (3.4-5.0); ANION GAP 4 mmol/L (5-15); CALCIUM 8.6 mg/dL (8.5-10.1); CHLORIDE 108 mmol/L (98-107)
[2020-07-15 06:34] LABS: BILIRUBIN,TOTAL 1.1 mg/dL (0.2-1.0)
[2020-07-15 06:37] LABS: ALANINE AMINOTRANSFERASE 28 U/L (12-78); ALKALINE PHOSPHATASE 83 U/L (45-117); TOTAL PROTEIN 6.4 g/dL (6.4-8.2)
[2020-07-15 07:21] LABS: CREATININE 0.66 mg/dL (0.7-1.3)
[2020-07-15 07:36] VITALS: BP 113/68
[2020-07-15] MEDS ORDERED: NICOTINE 14MG/24 HR PATCH.TD24 TD ONE (09:00)
[2020-07-15] MEDS: QUETIAPINE 100MG TABLET PO SCH ×2 (09:27→20:52)
[2020-07-15] MEDS: DIVALPROEX 250 MG TAB.ER.24H PO SCH ×2 (09:27→20:51)
[2020-07-15] MEDS: VENLAFAXINE XR 37.5MG CAP.ER.24H PO SCH (09:27)
[2020-07-15] MEDS: ACETAMINOPHEN 325 MG TABLET PO PRN ×2 (09:50→20:51)
[2020-07-15] MEDS ORDERED: POTASSIUM CHLORIDE 20 MEQ TAB.ER.PRT PO ONE (10:30)
[2020-07-15] MEDS ORDERED: ALBUTEROL HFA 90 MCG/SPRAY INH PRN (10:30)
[2020-07-15] MEDS ORDERED: POTASSIUM CHLORIDE 20 MEQ TAB.ER.PRT ONE (10:32)
[2020-07-15 19:30] VITALS: BP 117/72
[2020-07-15] MEDS: ATORVASTATIN 20 MG TABLET PO SCH (20:52)
[2020-07-16] MEDS ORDERED: ASPIRIN 325 MG TABLET PO SCH (06:00)
[2020-07-16 07:30] VITALS: BP 148/73
[2020-07-16] MEDS: QUETIAPINE 100MG TABLET PO SCH ×2 (08:23→20:46)
[2020-07-16] MEDS: DIVALPROEX 250 MG TAB.ER.24H PO SCH ×2 (08:24→20:46)
[2020-07-16] MEDS: VENLAFAXINE XR 37.5MG CAP.ER.24H PO SCH (08:24)
[2020-07-16] MEDS: ASPIRIN 325 MG TABLET PO SCH (09:00)
[2020-07-16] MEDS: ACETAMINOPHEN 325 MG TABLET PO PRN (09:08)
[2020-07-16 19:30] VITALS: BP 120/75
[2020-07-16] MEDS: ATORVASTATIN 20 MG TABLET PO SCH (20:46)
[2020-07-17 07:27] VITALS: BP 153/85
[2020-07-17] MEDS: QUETIAPINE 100MG TABLET PO SCH ×2 (07:46→20:33)
[2020-07-17] MEDS: VENLAFAXINE XR 37.5MG CAP.ER.24H PO SCH (07:47)
[2020-07-17] MEDS: DIVALPROEX 250 MG TAB.ER.24H PO SCH ×2 (07:47→20:33)
[2020-07-17] MEDS: ACETAMINOPHEN 325 MG TABLET PO PRN ×2 (07:47→20:33)
[2020-07-17] MEDS: ASPIRIN 325 MG TABLET PO SCH (07:47)
[2020-07-17 19:50] VITALS: BP 129/75
[2020-07-17] MEDS: ATORVASTATIN 20 MG TABLET PO SCH (20:33)
[2020-07-18 07:38] VITALS: BP 139/81
[2020-07-18] MEDS: DIVALPROEX 250 MG TAB.ER.24H PO SCH ×2 (08:54→20:20)
[2020-07-18] MEDS: VENLAFAXINE XR 37.5MG CAP.ER.24H PO SCH (08:55)
[2020-07-18] MEDS: ASPIRIN 325 MG TABLET PO SCH (08:55)
[2020-07-18] MEDS: ACETAMINOPHEN 325 MG TABLET PO PRN ×2 (08:55→20:20)
[2020-07-18] MEDS: QUETIAPINE 100MG TABLET PO SCH ×2 (08:55→20:20)
[2020-07-18] MEDS ORDERED: QUET100T PO (16:04)
[2020-07-18] MEDS ORDERED: VENL37.52 PO (16:04)
[2020-07-18] MEDS ORDERED: ALBU18HF INH (16:04)
[2020-07-18] MEDS ORDERED: DIVA250T PO (16:04)
[2020-07-18] MEDS ORDERED: ATOR20TA37 PO (16:04)
[2020-07-18] MEDS ORDERED: ASPI325T17 PO (16:04)
[2020-07-18 19:34] VITALS: BP 136/78
[2020-07-18] MEDS: ATORVASTATIN 20 MG TABLET PO SCH (20:20)
[2020-07-19 07:22] VITALS: BP 143/84
[2020-07-19] MEDS: DIVALPROEX 250 MG TAB.ER.24H PO SCH (08:27)
[2020-07-19] MEDS: VENLAFAXINE XR 37.5MG CAP.ER.24H PO SCH (08:27)
[2020-07-19] MEDS: ASPIRIN 325 MG TABLET PO SCH (08:27)
[2020-07-19] MEDS: QUETIAPINE 100MG TABLET PO SCH (08:28)
== END 2020-07-19 13:30 | disposition home or self-care (01) | DRG 885 ==
LOC: 3E 20:52
PROVIDERS: ADMIT Psychiatry & Neurology Psychosomatic Medicine; ATTEND Psychiatry & Neurology Psychosomatic Medicine
DX: F31.30 Bipolar disorder, current episode depressed, mild or moderate severity, unspecified (principal); F11.20 Opioid dependence, uncomplicated; F15.20 Other stimulant dependence, uncomplicated; F17.200 Nicotine dependence, unspecified, uncomplicated; F10.21 Alcohol dependence, in remission; Z88.6 Allergy status to analgesic agent; E78.5 Hyperlipidemia, unspecified; I10 Essential (primary) hypertension; I25.10 Atherosclerotic heart disease of native coronary artery without angina pectoris; I25.2 Old myocardial infarction; J44.9 Chronic obstructive pulmonary disease, unspecified; Z79.82 Long term (current) use of aspirin; Z79.899 Other long term (current) drug therapy
CPT/HCPCS: 36415; 71045; 80053; 80061; 81003; 82607; 85025; 93005

== ENCOUNTER 2020-10-16 10:13 | Emergency (ER) | payer MEDICARE ==
[~2020-10-16] VITALS: Ht 185.4 cm; Wt 88.4 kg
[~2020-10-16 10:13] MED LIST changes: +ALBU18HF INH; +ASPI325T17 PO; +ATOR20TA37 PO; +DIVA250T PO; +QUET100T PO; +SULF-23 PO; -SULF1TAB24 PO; +VENL37.52 PO
[2020-10-16 10:19] VITALS: BP 144/87
--- NOTE | 2020-10-16 11:04 | NUR ---
Patient given discharge instructions and they have confirmed that they understand the instructions. Patient ambulatory with steady gait.
== END 2020-10-16 11:05 | disposition home or self-care (01) ==
LOC: ED 10:53
DX: L03.116 Cellulitis of left lower limb (principal); R60.0 Localized edema; I25.2 Old myocardial infarction; I25.10 Atherosclerotic heart disease of native coronary artery without angina pectoris; I10 Essential (primary) hypertension; J44.9 Chronic obstructive pulmonary disease, unspecified
CPT/HCPCS: 99283

== ENCOUNTER 2020-10-20 16:33 | Emergency (ER) | payer MEDICARE ==
[~2020-10-20] VITALS: Ht 185.4 cm; Wt 89.6 kg
[~2020-10-20 16:33] MED LIST changes: -QUET100T PO; +QUET100T2 PO; -QUET50TA PO; +QUET50TA3 PO
[2020-10-20 16:36] VITALS: BP 106/71
[2020-10-20] MEDS ORDERED: KETOROLAC 30 MG/1 ML ONE (16:55)
--- NOTE | 2020-10-20 16:59 | NUR ---
XRAY AT BEDSIDE
[2020-10-20] MEDS ORDERED: KETOROLAC 30 MG/1 ML IM ONE (17:00)
--- NOTE | 2020-10-20 17:20 | NUR ---
SPE[employer]CES OFFICER PER MAR.
== END 2020-10-20 18:09 | disposition home or self-care (01) ==
LOC: ED 17:41
DX: L03.116 Cellulitis of left lower limb (principal); I10 Essential (primary) hypertension; J44.9 Chronic obstructive pulmonary disease, unspecified; I25.2 Old myocardial infarction; I25.10 Atherosclerotic heart disease of native coronary artery without angina pectoris
CPT/HCPCS: 73630; 82962; 96372; 99283; J1885

== ENCOUNTER 2020-10-29 09:12 | Emergency (ER) | payer MEDICARE ==
[~2020-10-29] VITALS: Ht 182.9 cm; Wt 92.9 kg
[~2020-10-29 09:12] MED LIST changes: +QUET100T PO; -QUET100T2 PO; +QUET50TA PO; -QUET50TA3 PO; -SULF-23 PO; +SULF1TAB24 PO
[2020-10-29 09:18] VITALS: BP 141/84
[2020-10-29 10:03] LABS: BASOPHILS % (AUTO) 1 % (0-1); EOSINOPHILS % (AUTO) 3 % (1-7); LYMPHOCYTES % (AUTO) 24 % (22-44); MEAN CORPUSCULAR HEMOGLOBIN 32.8 pg (27.5-34.5); MEAN CORPUSCULAR HGB CONC 34.1 g/dL (33.2-36.2); MEAN PLATELET VOLUME 7.4 fL (7.4-10.4); MONOCYTES % (AUTO) 10 % (2-9); NEUTROPHILS % (AUTO) 63 % (42-75); PLATELET COUNT 287 x10^3/uL (130-400); RED BLOOD COUNT 4.24 x10^6/uL (4.38-5.82); RED CELL DISTRIBUTION WIDTH 13.3 % (9.4-14.8)
[2020-10-29 10:04] LABS: MD NO
[2020-10-29 10:14] LABS: ALANINE AMINOTRANSFERASE 31 U/L (12-78); ALBUMIN 3.5 g/dL (3.4-5.0); CALCIUM 8.6 mg/dL (8.5-10.1); CREATININE 0.75 mg/dL (0.7-1.3)
[2020-10-29 10:17] LABS: ALKALINE PHOSPHATASE 101 U/L (45-117); BILIRUBIN,TOTAL 0.2 mg/dL (0.2-1.0); TOTAL PROTEIN 6.6 g/dL (6.4-8.2)
[2020-10-29 10:25] LABS: ANION GAP 5 mmol/L (5-15); CHLORIDE 108 mmol/L (98-107)
--- NOTE | 2020-10-29 10:50 | NUR ---
Patient given discharge instructions and they have confirmed that they understand the instructions. Patient ambulatory with steady gait.
== END 2020-10-29 10:51 | disposition home or self-care (01) ==
LOC: ED 09:40
DX: L03.116 Cellulitis of left lower limb (principal)
CPT/HCPCS: 36415; 80053; 85025; 99284

== ENCOUNTER 2020-11-10 08:49 | Emergency (ER) | payer MEDICARE ==
[~2020-11-10] VITALS: Ht 185.4 cm; Wt 90.9 kg
[~2020-11-10 08:49] MED LIST changes: +SULF-23 PO; -SULF1TAB24 PO
[2020-11-10 10:01] VITALS: BP 126/77
== END 2020-11-10 10:27 | disposition home or self-care (01) ==
LOC: ED 10:10
DX: L03.116 Cellulitis of left lower limb (principal); J44.9 Chronic obstructive pulmonary disease, unspecified; F17.210 Nicotine dependence, cigarettes, uncomplicated; I25.10 Atherosclerotic heart disease of native coronary artery without angina pectoris; I25.2 Old myocardial infarction; I10 Essential (primary) hypertension
CPT/HCPCS: 99406

== ENCOUNTER 2021-01-06 09:19 | Emergency (ER) | payer MEDICARE ==
[~2021-01-06] VITALS: Ht 185.4 cm; Wt 88.0 kg
[~2021-01-06 09:19] MED LIST changes: -QUET100T PO; +QUET100T2 PO; -QUET50TA PO; +QUET50TA3 PO
[2021-01-06 10:50] VITALS: BP 121/83
--- NOTE | 2021-01-06 11:03 | NUR ---
sw aware of pt. pt updated on poc and agreeable
== END 2021-01-06 11:53 | disposition home or self-care (01) ==
LOC: ED 11:03
DX: F33.9 Major depressive disorder, recurrent, unspecified (principal); I10 Essential (primary) hypertension; I25.10 Atherosclerotic heart disease of native coronary artery without angina pectoris; J44.9 Chronic obstructive pulmonary disease, unspecified; F17.200 Nicotine dependence, unspecified, uncomplicated
CPT/HCPCS: 99281